=== PATIENT | male | born 1950 | race Caucasian/White ===

== ENCOUNTER 2024-05-09 09:47 | Day surgery (SDC) | payer MEDICARE ==
[~2024-05-09] VITALS: Ht 188 cm; Wt 98.6 kg
[~2024-05-09 09:47] MED LIST: B-100 COMPLEX1 EAC1 PO; B12 ACTIVE1000 MCG PO; CEFAZOLIN SODIUM 2 GM/20 ML SYR IV SCH; DAILY VALUE1 EACH PO; FLOMAX0.4 MG PO; IBLOOD GLUCOSE TEST STRIP 1 EA TEST VI PRN; LACTATED RINGER'S 1,000 ML IV SCH; LIDOCAINE HCL 1% 5 ML SDV INJ ONE; LOSARTAN-HCTZ1 EAC2 PO; MELOXICAM15 MG PO; METOPROLOL SUCC50 MG PO; TADALAFIL2.5 MG PO
[2024-05-09 10:10] VITALS: BP 129/100
--- NOTE | 2024-05-09 10:22 | NUR ---
TRACEY WAITING IN ROOM. DENIES ANY NEEDS.
[2024-05-09] MEDS ORDERED: fentaNYL citrate 50 MCG/ML SDV IV PRN (13:15)
[2024-05-09] MEDS ORDERED: NALOXONE HCL 0.4 MG SYR IV PRN (13:15)
[2024-05-09] MEDS ORDERED: IBLOOD GLUCOSE TEST STRIP 1 EA TEST VI PRN (13:15)
[2024-05-09] MEDS ORDERED: ondansetron HCL 4 MG/2 ML VIAL IV PRN ×2 (13:15→13:30)
[2024-05-09] MEDS ORDERED: HYDROmorphone HCL 1 MG/ML SYR IV PRN (13:30)
[2024-05-09] MEDS ORDERED: OXYCODONE/APAP 5/325 TAB PO PRN (13:30)
[2024-05-09] MEDS ORDERED: diphenhydrAMINE HCL 25 MG CAP PO PRN (13:30)
[2024-05-09] MEDS ORDERED: LACTATED RINGER'S 1,000 ML IV SCH (13:30)
--- NOTE | 2024-05-09 14:20 | NUR ---
1150 WAS UPDATED ON WAIT. GOING HOME.
[2024-05-09 14:21] VITALS: BP 168/106
--- NOTE | 2024-05-09 14:22 | NUR ---
1300 WARM BLANKETS ON.1425 UPDATED ON WAIT.
[2024-05-09] MEDS ORDERED: LIDOCAINE HCL 2% 5 ML SDV ONE (15:36)
[2024-05-09] MEDS ORDERED: propofoL 200 MG/20 ML VIAL ONE ×2 (15:36→16:34)
[2024-05-09] MEDS ORDERED: MORPHINE SULFATE 1 MG/ML VIAL ONE (15:37)
[2024-05-09] MEDS ORDERED: fentaNYL citrate 100 MCG/2 ML VIAL ONE (15:37)
[2024-05-09] MEDS ORDERED: BUPIVACAINE 0.75% IN DEXTROSE 2 ML AMP ONE (15:37)
[2024-05-09] MEDS ORDERED: KETAMINE in NS 50 MG/5 ML SYR ONE (16:04)
[2024-05-09] MEDS ORDERED: SEVOFLURANE 250 ML BTL ONE (16:12)
[2024-05-09] MEDS ORDERED: LACTATED RINGER'S 1,000 ML IV ONE ×2 (16:24→16:27)
[2024-05-09] MEDS ORDERED: FLUORESCEIN SODIUM 500 MG/5 ML ML ONE (16:26)
[2024-05-09] MEDS ORDERED: NICOTINE 21 MG/24 HR 1 EA TDSY TD ONE (17:30)
[2024-05-09 17:50] VITALS: BP 105/59
[2024-05-09] MEDS ORDERED: LOSARTAN PO SCH (18:05)
[2024-05-09] MEDS ORDERED: [UNRECOGNIZED DRUG - OTHER] PO SCH (18:05)
--- NOTE | 2024-05-09 18:05 | NUR ---
PT TO FLOOR VIA BED WITH SHERLYN OROZCO. PT IN ROOM. DRANK AN ENSURE. PT DENIES PAIN. CBI ALMOST CLAMPED COMPLETLY. LR@75. URINE BRIGHT YELLOW
[2024-05-09] MEDS ORDERED: CIALIS5 MG PO (18:11)
--- NOTE | 2024-05-09 18:15 | NUR ---
medications reconciled using pharmacy records and patient interview. Patient is using his own losartan/HCTZ, Please assure that it is returned to him prior to discharge
[2024-05-09 18:35] VITALS: BP 113/82
--- NOTE | 2024-05-09 19:16 | NUR ---
REPORT RECEIVED FROM DAY SHIFT RN. PT LYING IN BED ALERT AND ORIENTED. DENIES NEEDS. WHITE BOARD UPDATED. CALL LIGHT IN REACH.
[2024-05-09 19:38] VITALS: BP 159/99
--- NOTE | 2024-05-09 19:43 | NUR ---
VS COMPLETED. CBI CLAMPED, URINE DILUTE YELLOW. FRESH ICE WATER GIVEN, OFFER SNACK, REFUSED. WATCHING TV. NO OTHER NEEDS EXPRESSED.
[2024-05-09 20:34] VITALS: BP 155/90
--- NOTE | 2024-05-09 20:49 | NUR ---
POST OP VS COMPLETE. PT DENIES PAIN OR NAUSEA. CBI CLAMPED WITH CLEAR YELLOW SLIGHT GREEN TINGED URINE. EVENING ASSESSMENT COMPLETE. HOME BP MED GIVEN FOR BLOOD PRESSURE 155/90 (108). ASSISTED TO REPOSITION IN BED. SCD'S AND CPOX IN PLACE. PT DENIES QUESTIONS OR CONCERNS. CALL LIGHT IN REACH. BED ALARM FOR SAFETY.
--- NOTE | 2024-05-09 21:29 | NUR ---
PT INCONTINENT OF LARGE AMOUNT BM. CARYN/INIGUEZ CARE DONE. NEW LINENS AND CHUCKS IN PLACE. NO FURTHER NEEDS. CALL LIGHT IN REACH.
--- NOTE | 2024-05-09 23:45 | NUR ---
IV PUMP ALARMING. ISSUE RESOLVED. PT AWAKE IN BED, REPORTS GENERALIZED ITCHING. NO NEW REDNESS OR RASH NOTED. PRN FOR ITCHING ADMIN PER EMAR. URINE IN INIGUEZ TURBING REMAINS CLEAR YELLOW. CBI CLAMPED. WARM BLANKETS PROVIDED. NO FURTHER NEEDS.
[2024-05-10 01:43] VITALS: BP 134/84
--- NOTE | 2024-05-10 01:51 | NUR ---
PT RESTING WITH EYES CLOSED. AWAKENS EASILY. VS AND I&O OBTAINED. URINE IN INIGUEZ TUBING LIGHT YELLOW. NO BLOOD OR CLOTS NOTED. CBI REMAINS CLAMPED. PT DENIES PAIN. NO FURTHER NEEDS.
--- NOTE | 2024-05-10 03:31 | NUR ---
CALL LIGHT ANSWERED. PT CONCERNED HE WAS INCONTINENT OF BM AFTER PASSING GAS. NO BM NOTED. URINE IN INIGUEZ TUBING LIGHT YELLOW. CBI CLAMPED. NO FURTHER NEED.
[2024-05-10 05:31] VITALS: BP 142/87
--- NOTE | 2024-05-10 06:00 | NUR ---
PT AWAKE IN BED. VS AND I&O OBTAINED. INIGUEZ PATENT WITH CLEAR YELLOW URINE. CBI REMAINS CLAMPED. NO NEEDS AT THIS TIME. CALL LIGHT IN REACH.
--- NOTE | 2024-05-10 07:15 | NUR ---
REPORT RECIEVED FROM SHERLYN REECE. PT AWAKE AND STATES HE IS READY TO GO HOME. KNOWS HE HAS AN AB AND HAS TO WAIT FOR TO BE DONE WITH [facility] RESIDENT. UNHOOKED FROM IVF AND CPOX.
--- NOTE | 2024-05-10 07:44 | NUR ---
UR CLINICAL REVIEW: [facility]-MEETS SHORT STAY CRITERIA FOR [facility] EXTENDED RECOVERY 05/09/24 @ 1330 ORDER MATCHES REG NO AUTH REQUIRED FOR EXTENDED STAY DISCHARGE TO HOME TODAY IF CBI DISCONTINUED
--- NOTE | 2024-05-10 07:50 | NUR ---
Board has been updated and call light has been placed within reach
[2024-05-10] MEDS ORDERED: TRAMADOL HCL100 M2 PO (07:55)
[2024-05-10] MEDS ORDERED: CIPRO500 MG PO (07:56)
--- NOTE | 2024-05-10 08:53 | NUR ---
LIVES IN HOUSE. NO STAIRS. STATES HE HAS NO DME. HE DRIVES AT [facility] AND HAS NO FINANCIAL CONCERNS. DENIES ANY CM NEEDS AT THIS TIME. STATES HE WOULD LIKE TO GO HOME. VERIFIED DEMOGRAPHICS WITH PATIENT. INSTRUCTED TO NOTIFY STAFF IF NEEDS ARISE.
[2024-05-10] MEDS ORDERED: [UNRECOGNIZED DRUG - OTHER] PO SCH (09:00)
[2024-05-10] MEDS ORDERED: CEFTRIAXONE/SODIUM CHLORIDE 1 GM/100 ML PIGGYBACK IV SCH (09:00)
[2024-05-10] MEDS ORDERED: LOSARTAN PO SCH (09:00)
[2024-05-10 09:15] VITALS: BP 138/90
--- NOTE | 2024-05-10 10:05 | NUR ---
EDUCATION GONE OVER WITH PT. IV REMOVED PRIOR. PT DENIES CONCERNS.
--- NOTE | 2024-05-10 10:08 | NUR ---
INIGUEZ REMOVED PER DR ERNST ORDER AFTER SHE WAS HERE. ASSISTED WITH RN STUDENT NEELAM'S REMOVAL. PT EDUCATED ON VOIDING AND POSSIBLE BLOODY DRAINAGE. VERBALIZED UNDERSTANDING.
--- NOTE | 2024-05-10 10:12 | NUR ---
VISITED DURING SPIRITUAL CARE ROUNDS. PT APPEARED IN GOOD SPIRITS, STATED WAS WAITING FOR TO ARRIVE SO HE COULD LEAVE. DRYWALL APPLICATOR PROVIDED SUPPORTIVE PRESENCE, HOSPITALITY, PRAYER, FACILITATED INTERACTION WITH VISITING THERAPY ANIMAL. PT EXPRESSED GRATITUDE.
--- NOTE | 2024-05-12 17:13 | PATH ---
[facility] [address], [place] [address] Signed SPECIMEN(S): A PROSTATE CHIPS SPECIMEN SOURCE: Malrey PROSTATE RANI CLINICAL HISTORY: Pre: BPH. Post: TURP. FINAL PATHOLOGIC DIAGNOSIS: Prostate chips: - Benign prostatic glandular tissue with stromal and glandular hyperplasia. - Focal chronic stromal and glandular inflammation. - Urothelium with reactive features and focal mild urothelial atypia. JVR:feliberto MICROSCOPIC EXAMINATION: Histologic sections of all submitted blocks are examined by light microscopy. These findings, together with the gross examination, support the pathologic diagnosis. GROSS DESCRIPTION: The specimen, labeled and designated "Dhaval prostate rani," is received in formalin and consists of irregular shaped pink-monroe, rubbery tissue fragments that aggregate measure 3.5 x 3.0 x 0.4 cm. The specimen weighs 3 grams. Entirely submitted in (A1-A2). JS (under the direct supervision of a pathologist) The Gross Description was prepared using a voice recognition system. The report was reviewed for accuracy; however, sound-alike word errors, addition and/or deletions may occur. If there is any question about this report, please contact Client Services. PERFORMING LABORATORY: Technical component was performed by [facility], [address] [place] [id number] (CLIA# [id number]). Professional interpretation was performed by [facility], [address] [place] [id number] (CLIA#: [id number]). Diagnostician: Pedro Luis Flynn MD Pathologist Electronically Signed 05/12/2024 PATIENT NAME: TEQUILA JOHANSEN PATHOLOGY DATE OF : 48 REPORT #: [id number] PHYSICIAN: DEDRICK PATHOLOGY PCP: LIZA MOORE MD REPORT IS CONFIDENTIAL AND NOT TO BE RELEASED WITHOUT AUTHORIZATION [address] [place], [place] [address] Signed Copies: ~ PATIENT NAME: TEQUILA JOHANSEN PATHOLOGY DATE OF : 48 REPORT #: [id number] PHYSICIAN: DEDRICK PATHOLOGY PCP: LIZA MOORE MD REPORT IS CONFIDENTIAL AND NOT TO BE RELEASED WITHOUT AUTHORIZATION
== END 2024-05-10 10:30 | disposition home or self-care (01) ==
LOC: DS 09:47 → OPS 09:47 → DS 10:50 → OPS 13:00 → DS 13:00 → MS 17:55 → OPS 05-10 10:30
PROVIDERS: ATTEND Urology
PROC: 0VB08ZZ Excision of Prostate, Via Natural or Artificial Opening Endoscopic (ICD-10-PCS; principal; 2024-05-09 13:00)
DX: N40.1 Benign prostatic hyperplasia with lower urinary tract symptoms (principal); R39.14 Feeling of incomplete bladder emptying; N32.89 Other specified disorders of bladder
CPT/HCPCS: 00914; 80048; 85025; 88305; 93005; 93010; C1769; J0690; J0696; J2001; J2274; J2704; J3010; J3490; J7121

== ENCOUNTER 2024-05-11 22:36 | Emergency (ER) | payer MEDICARE ==
[~2024-05-11] VITALS: Ht 188 cm; Wt 95.2 kg
[~2024-05-11 22:36] MED LIST changes: -CEFAZOLIN SODIUM 2 GM/20 ML SYR IV SCH; +CIALIS5 MG PO; +CIPRO500 MG PO; -IBLOOD GLUCOSE TEST STRIP 1 EA TEST VI PRN; -LACTATED RINGER'S 1,000 ML IV SCH; -LIDOCAINE HCL 1% 5 ML SDV INJ ONE; +TRAMADOL HCL100 M2 PO
[2024-05-11] MEDS ORDERED: LIDOCAINE 2% VISCOUS 6 ML SYR TOP ONE (23:00)
[2024-05-11 23:08] LABS: MCHC 34.1 g/dl (30-36); RDW 13.1 (10.5-15.0)
[2024-05-11 23:10] LABS: BASOPHILS 0.2 % (0-2); EOSINOPHILS 0.6 % (0-6); HEMATOCRIT 48.4 % (35.0-50.0); HEMOGLOBIN 16.5 g/dL (12.0-18.0); LYMPHOCYTES 4.9 % (24-44); MCV 102.8 fl (81-99); MONOCYTES 7.6 % (0-12); NEUTROPHILS 86.7 % (39-80); PLATELET COUNT 255 K/uL (140-440); RBC 4.71 M/ul (4.3-5.7)
[2024-05-11 23:22] LABS: ALBUMIN 3.2 g/dL (3.4-5.0); ALBUMIN/GLOBULIN RATIO 0.86 (1.1-2.4); ANION GAP 15.5 (7-21); BILIRUBIN, TOTAL 0.6 ng/dL (0.2-1.0); BUN/CREATININE RATIO 8.33 (6.0-28.6); CALCIUM 8.8 mg/dL (8.5-10.1); CREATININE, SERUM 0.96 mg/dL (0.70-1.30); POTASSIUM 3.5 mmol/L (3.5-5.1); PROTEIN, TOTAL 6.9 g/dL (6.4-8.2)
[2024-05-11 23:27] LABS: BILIRUBIN, URINE NEGATIVE (negative); BLOOD/HGB, URINE MODERATE (Negative); KETONE, URINE TRACE (Negative); LEUK ESTERASE, URINE NEGATIVE (negative); NITRITE, URINE NEGATIVE (negative); PH, URINE 6.5 (5-7)
[2024-05-11] MEDS ORDERED: SODIUM CHLORIDE 0.9% 1,000 ML IV PRN (23:30)
[2024-05-11 23:32] LABS: EPITHELIAL CELLS, URINE SQUAMOUS 1+ /lpf (0-1+); RED BLOOD CELLS, URINE >50 /hpf (0-5)
[2024-05-11 23:33] LABS: BACTERIA, URINE RARE /hpf (negative); CASTS, URINE NONE SEEN \\lpf; COLLECTION TYPE, URINE CLEAN CATCH; CRYSTALS, URINE NONE SEEN (0-1+); REFLEX CULTURE, URINE No (No)
[2024-05-11] MEDS ORDERED: TRAMADOL HCL 50 MG TAB ONE (23:42)
[2024-05-11] MEDS ORDERED: NALOXONE 4 MG NASAL SPRAY #2 HOME.PACK NAS ONE (23:45)
[2024-05-11] MEDS ORDERED: Buprenorphine/Naloxone 8/2mg 1 EACH HOME.PACK SL ONE (23:45)
[2024-05-11] MEDS ORDERED: TRAMADOL HCL 50 MG TAB PO ONE (23:45)
[2024-05-11] MEDS ORDERED: KETOROLAC TROMETHAMINE 15 MG/ML VIAL IV ONE (23:45)
[2024-05-12 00:12] VITALS: BP 128/81
== END 2024-05-12 00:12 | disposition home or self-care (01) ==
LOC: ED 22:36
PROVIDERS: Internal Medicine
DX: N99.89 Other postprocedural complications and disorders of genitourinary system (principal); R33.8 Other retention of urine; Y83.8 Other surgical procedures as the cause of abnormal reaction of the patient, or of later complication, without mention of misadventure at the time of the procedure; Z88.6 Allergy status to analgesic agent; Z79.899 Other long term (current) drug therapy
CPT/HCPCS: 36415; 51702; 51798; 80053; 81001; 85025; 99283-25; J1885; J7030

== ENCOUNTER 2024-07-04 16:17 | Emergency (ER) | payer MEDICARE ==
[~2024-07-04] VITALS: Ht 188 cm; Wt 96.3 kg
[2024-07-04] MEDS ORDERED: OXYMETAZOLINE HCL 30 ML BTL NAS ONE (17:15)
[2024-07-04 18:15] VITALS: BP 134/91
== END 2024-07-04 18:15 | disposition home or self-care (01) ==
LOC: ED 16:17
DX: R04.0 Epistaxis (principal); I10 Essential (primary) hypertension; Z79.899 Other long term (current) drug therapy; Z88.6 Allergy status to analgesic agent
CPT/HCPCS: 99283